=== PATIENT | female | born 1950 | race African-American/Black ===

== ENCOUNTER 2019-03-24 14:54 | Emergency (ER) | payer MEDICARE, MEDICAID ==
[~2019-03-24] VITALS: Ht 165.1 cm; Wt 50.0 kg
[2019-03-24 21:10] VITALS: BP 121/70
== END 2019-03-24 21:20 | disposition home or self-care (01) ==
LOC: ER 14:59
DX: L02.31 Cutaneous abscess of buttock (principal)
CPT/HCPCS: 99283